=== PATIENT | female | born 1960 | race Hispanic/Latino ===

== ENCOUNTER 2017-12-05 05:45 | Day surgery (SDC) | payer MEDICARE ==
[2017-12-05] MEDS ORDERED: WATER FOR IRRIG STERILE IR ONE (07:21)
[2017-12-05] MEDS ORDERED: XYLOCAINE 1% 20 mL ONE (07:34)
[2017-12-05] MEDS ORDERED: NACL 0.9% 1000 ML 1,000 ML ONE (07:34)
[2017-12-05] MEDS ORDERED: DIPRIVAN 10 MG/ML IV ONE ×2 (07:34)
[2017-12-05] MEDS ORDERED: ROBINUL ONE (07:36)
[2017-12-05] MEDS ORDERED: KETALAR ONE (07:36)
[2017-12-05] MEDS ORDERED: NACL 0.9% 1000 ML 1,000 ML IV SCH (08:00)
[2017-12-05 08:49] VITALS: BP 124/68
--- NOTE | 2017-12-05 08:57 | Anesthesia Consultation ---
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
--- NOTE | 2017-12-05 08:58 | Anesthesia Day of Surgery ---
Anesthesia Day of Surgery - Day of Surgery Patient Examined: Yes Patient H&P Reviewed: Yes Patient is NPO: Yes
--- NOTE | 2017-12-05 11:14 | Post Anesthesia Evaluation ---
- Post Anesthesia Evaluation Patient Participated: Yes Airway Patent: Yes Stable Respiratory Function: Yes Nausea/Vomiting: No Temp > 96.8F: Yes Pain Manageable: Yes Adequeate Hydration: Yes Anesthesia Complications: No
== END 2017-12-05 05:46 | disposition home or self-care (01) ==
LOC: GIO 05:45
PROVIDERS: ATTEND Specialist
DX: K20.9 Esophagitis, unspecified (principal); K44.9 Diaphragmatic hernia without obstruction or gangrene; K59.00 Constipation, unspecified; J45.909 Unspecified asthma, uncomplicated; I10 Essential (primary) hypertension; G47.30 Sleep apnea, unspecified; E66.01 Morbid (severe) obesity due to excess calories; E78.5 Hyperlipidemia, unspecified; F32.9 Major depressive disorder, single episode, unspecified; Z68.32 Body mass index [BMI] 32.0-32.9, adult; Z86.73 Personal history of transient ischemic attack (TIA), and cerebral infarction without residual deficits; Z88.0 Allergy status to penicillin; Z88.5 Allergy status to narcotic agent; Z98.890 Other specified postprocedural states; Z98.84 Bariatric surgery status; Z88.6 Allergy status to analgesic agent
CPT/HCPCS: 43235; J2704; J7030